=== PATIENT | female | born 1975 | race Caucasian/White ===

== ENCOUNTER 2017-07-06 23:24 | Emergency (ER) | payer SELFPAY ==
--- NOTE | 2017-07-07 07:14 | ER ---
ADMIT: 07/06/2017 RM/LOC: ER [facility] MR#: [id number] [address] [place] [address] Emergency Room Report SEX: F AGE: 41 : 1975 DATE: 07/07/2017 The patient is a 41-year-old, female complaining of multiple toothaches most severe is #15. States she cracked it over a month ago. Exam remarkable for nontoxic, afebrile female with no malar swelling. Dentition in poor repair with several cracked teeth and caries noted. No evidence of gingivitis surrounding tooth #15. Dental block with benzocaine topical followed by Marcaine 0.5% with epi with moderate results. Hydrocodone 5/325 two p.o. in department #20 plus 6 from Pyxis. Pen-Vee K 1 g p.o. in department, 500 mg q.i.d. x10 days. Follow up dentist as soon as possible. Ramez Caban MD/ augusto JOB #: [id number] CC: Ramez Caban MD, Attending Physician Andrzej Garcia MD, Family Physician
== END 2017-07-07 00:30 | disposition home or self-care (01) ==
LOC: ER 23:24
PROC: 3E0T3BZ Introduction of Anesthetic Agent into Peripheral Nerves and Plexi, Percutaneous Approach (ICD-10-PCS; principal; 2017-07-06)
DX: K02.9 Dental caries, unspecified (principal); J45.909 Unspecified asthma, uncomplicated; F17.210 Nicotine dependence, cigarettes, uncomplicated; Z88.0 Allergy status to penicillin; Z88.1 Allergy status to other antibiotic agents; Z90.49 Acquired absence of other specified parts of digestive tract; Z90.710 Acquired absence of both cervix and uterus